=== PATIENT | female | born 1950 | race Caucasian/White ===

== ENCOUNTER 2018-03-26 06:52 | Emergency (ER) | payer MEDICARE, OTHER ==
[~2018-03-26 06:52] MED LIST: PER PO
--- NOTE | 2018-03-26 07:40 | RADIOLOGY IMAGING REPORT ---
FACILITY: [facility] PATIENT NAME: Maya Pompa : 1950 MR: [id number] V: [id number] EXAM DATE: ORDERING PHYSICIAN: PETRONA LAU TECHNOLOGIST: [facility] Patient: Maya Pompa : 1950 Visit/Account:[id number] Date of Sevice: 03/26/2018 HEAD W/O CONTRAST HISTORY: Fell in bathroom. Hit head on sink. Pain greatest left laterally. COMPARISON: None. TECHNIQUE: Axial images were obtained from the skull base to the vertex without contrast. Sagittal an d coronal reformats were performed. One of the following dose optimization techniques was utilized in the performance of this exam: Autom ated exposure control; adjustment of the mA and/or kV according to the patient's size; or use of an i terative reconstruction technique. Specific details can be referenced in the facility's radiology CT exam operational policy. CONTRAST: None. FINDINGS: Brain: No intracranial hemorrhage, mass, or edema. Ventricles and sulci: Sulci are prominent, compatible with mild atrophy, normal for age. Ventricular size and configuration is normal. Osseous structures: Intact. Paranasal sinuses and mastoids: Normal. Orbits and soft tissues: Changes of bilateral lens/cataract surgery. There is minimal stranding in th e posterior left parietal scalp (image 37 series 2), compatible with a subtle contusion. IMPRESSION: 1. Scalp contusion, but no acute intracranial abnormality. Report Dictated By: Tessa Dumont at 03/26/2018 7:31 AM Report E-Signed By: Tessa Dumont at 03/26/2018 7:35 AM WSN:[id number]
--- NOTE | 2018-03-26 08:15 | ER Report ---
History and Physical Time Seen By MD: 07:00 Hx. 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 Her helped her up as she had difficulty getting up herself, and was 'dazed' but did not lose consciousness. Has continued focal pain, though no blurred visi on, preyncope, cp, sob, palpitations. Not on blood thinners. REVIEW OF SYSTEMS: Constitutional: No fever, no chills. Eyes: No discharge. ENT: No sore throat. Cardiovascular: No chest pain, no palpitations. Respiratory: No cough, no shortness of breath. Gastrointestinal: No abdominal pain, no vomiting. Genitourinary: No hematuria. Musculoskeletal: No back pain. Skin: No rashes. Neurological: above Remainder of the 14 system rev: Yes Allergies: Coded Allergies: No Known Drug Allergies (Unverified , 03/26/18) Home Meds No Active Prescriptions or Reported Meds Hx Smoking: No Hx Substance Use Disorder: No Hx Alcohol Use: Yes (occasional) Constitutional Vital Sign - Last 24 Hours 03/26/18 06:59 Temp 97.8 Pulse 64 B/P (MAP) 148/79 Pulse Ox 91 O2 Delivery Room Air Physical Exam General Appearance: The patient is alert, has no immediate need for airway protection and no signs of toxicity. [ ] Eyes: Pupils equal and round no pallor or injection. ENT, Mouth: Mucous membranes are moist. Respiratory: There are no retractions, lungs are clear to auscultation. Cardiovascular: Regular rate and rhythm. Neurological: alert, oriented x 4, moves all ext Skin: Warm and dry, no rashes. Musculoskeletal: Neck is supple non tender. No cspine ttp throughout Extremities are nontender, nonswollen and have full range of motion. head - l parietal/occipital 3x3cm contusion without laceration. no bony stepoff DIFFERENTIAL DIAGNOSIS: After history and physical exam differential diagnosis was considered for chi, ich, organic etiology of fall, other emergent etiology Medical Decision Making ED Course/Re-evaluation ED Course Pt appears well, ct head due to age, unremarkable. Will d/c with SRP's; ambulates wtihout difficulty. No sgs concussion currently but concussion precautions given. Decision to Disposition Date: Mar 26, 2018 Decision to Disposition Time: 08:20 Depart Departure Latest Vital Signs Vital Signs Date Time Temp Pulse Resp B/P (MAP) Pulse Ox O2 Delivery O2 Flow Rate FiO2 03/26/18 06:59 97.8 64 148/79 91 Room Air Impression: Primary Impression: Contusion of head Additional Impression: Closed head injury Condition: Improved Disposition: HOME OR SELF-CARE New Scripts No Active Prescriptions or Reported Meds Patient Instructions: Concussion (ED) Problem Qualifiers Primary Impression: Contusion of head Encounter type: initial encounter Contusion of head detail: scalp Qualified Codes: S00.03XA - Contusion of scalp, initial encounter Additional Impression: Closed head injury Encounter type: initial encounter Qualified Codes: S09.90XA - Unspecified injury of head, initial encounter PETRONA LAU MD Mar 26, 2018 08:15
[2018-03-26 08:33] VITALS: BP 132/60
== END 2018-03-26 08:35 | disposition home or self-care (01) ==
LOC: ER 07:29
DX: S00.03XA Contusion of scalp, initial encounter (principal); S09.90XA Unspecified injury of head, initial encounter; W01.198A Fall on same level from slipping, tripping and stumbling with subsequent striking against other object, initial encounter
CPT/HCPCS: 70450; 99284

== ENCOUNTER 2018-06-26 07:00 | Day surgery (SDC) | payer MEDICARE, OTHER ==
[~2018-06-26] VITALS: Ht 157.5 cm; Wt 71.2 kg
[~2018-06-26 07:00] MED LIST changes: +ASCO-182 PO; +GARL1TAB9 PO; +MULT1CAP59 PO; +PYRI25TA18 PO; +VITA100T4 PO; +[UNRECOGNIZED DRUG - CODE]
[2018-06-26 09:14] VITALS: BP 141/74
[2018-06-26] MEDS ORDERED: PROPOFOL EMUL(*) 10MG/ML 20 ML 40 ML ONE (09:14)
[2018-06-26] MEDS ORDERED: LIDOCAINE MPF 1% 5 ML VIAL ONE (09:14)
[2018-06-26] MEDS ORDERED: LIDOCAINE/SOD BICARB 8.4% SYR ID ONE (10:05)
[2018-06-26] MEDS ORDERED: NORMOSOL R SOLN(*) 1000 ML BAG 1,000 ML IV PRN (10:05)
[2018-06-26 10:27] VITALS: BP 94/57
--- NOTE | 2018-06-26 10:44 | Short(Outpt) Discharge Summary ---
Discharge Summary Reason for Hosp/Final Diag: (1) Colon cancer screening Status: Chronic Hospital Course & Plan: Colonoscopy with polypectomy x4 completed without problems. (2) History of colon polyps Status: Chronic (3) Family history of colonic polyps Departure Discharge to: Home, Self Care Discharge Instructions Home Meds Reported Medications Multivitamin (MULTIVITAMINS) Unknown Strength Capsule, PO, CAPSULE 05/13/18 Garlic (GARLIC) Unknown Strength Tablet, PO 05/13/18 Vitamin E Mixed (VITAMIN E) Unknown Strength Tablet, PO 05/13/18 Vitamins A and D (Vitamin A and D) Unknown Strength Oint...g. 05/13/18 Pyridoxine Hcl (VITAMIN B-6) Unknown Strength Tablet, PO 05/13/18 Ascorbic Acid (VITAMIN C) Unknown Strength Tablet, PO, TAB 05/13/18 Diet: Regular Activity: As Tolerated Special Instructions: Your colonoscopy was completed without problems and your prep was excellent (Good Job!!). I removed 4 polyps from your colon and they were sent to pathology. My office will call you in the next week or two to let you know what the polyps are and when your next colonoscopy should be (either 3 or 5 years) depending on pathology results. JORDAN LANDERS MD Jun 26, 2018 10:44
[2018-06-26 11:00] VITALS: BP 132/63
[2018-06-26 11:09] VITALS: BP 126/74
[2018-06-26 11:11] VITALS: BP 129/76
--- NOTE | 2018-06-26 11:41 | NUR ---
1027- PT. RECEIVED FROM THE OR VIA STRETCHER WITH THE SIDERAILS UP. SBAR RECEIVED FROM MONICA LOZOYA AND DR. CRUZ. SEE ADMISSION ASSESSMENT. 1035- WATER GIVEN TO PT. 1100- PT. RETURNED TO ROOM AIR. 1105- DC INSTRUCTIONS GONE OVER WITH PT. AND . 1112- PT. GETTING DRESSED. 1115- IV TAKEN OUT AND PRESSURE DRESSING APPLIED. 1120- PT. ESCORTED OUT WITH PT. SEE DISCHARGE ASSESSMENT.
== END 2018-06-26 11:20 | disposition home or self-care (01) ==
LOC: OR 07:00
PROVIDERS: ATTEND Surgery
DX: Z12.11 Encounter for screening for malignant neoplasm of colon (principal); D12.0 Benign neoplasm of cecum; K63.5 Polyp of colon; Z86.010 Personal history of colon polyps; Z83.71 Family history of colonic polyps
CPT/HCPCS: 00811; 45385; 88305; J2001; J2704